=== PATIENT | male | born 1935 | race African-American/Black ===

== ENCOUNTER 2016-11-05 13:02 | Inpatient (IN) | payer OTHER, MEDICARE ==
[~2016-11-05] VITALS: Ht 170.2 cm; Wt 89.9 kg
[~2016-11-05 13:02] MED LIST: ASPI325T PO; CARV25TA PO; FURO1TAB93 PO; GABA100C4 PO; LEVA500T33 PO; LISI-363 PO; LOVA40TA PO; NEXI40CA PO; NORC7.5T PO; SPIR25TA PO
[2016-11-05 13:05] VITALS: BP 140/75; PULSE 64; RESP 22; TEMP 98.2; O2SAT 98
--- NOTE | 2016-11-05 14:50 | RADRPT ---
EXAM DATE/TIME: 11/05/2016 14:47 [facility] COMPARISON: No previous studies available for comparison. INDICATIONS : Short of breath. MEDICAL HISTORY : Cardiovascular disease. SURGICAL HISTORY : Pacemaker. ENCOUNTER: Subsequent ACUITY: 1 week PAIN SCORE: 0/10 LOCATION: Bilateral chest FINDINGS: PA and lateral views of the chest demonstrate the lungs to be symmetrically, but over aerated with so me linear atelectatic changes just above the left hemidiaphragm in the region of the lingula. Lungs a re otherwise clear with no acute infiltrate. The cardiomediastinal contours are unremarkable. Left subclavian bipolar pacer/defibrillator. Osseous structures are intact. CONCLUSION: 1. Hyperinflation with minimal linear atelectasis or scarring in the left lingula. Otherwise, no acut e infiltrate. 2. Left subclavian bipolar pacer/defibrillator. Mynor Roldan MD on November 05, 2016 at 14:47 Board Certified Radiologist. This report was verified electronically.
[2016-11-05] MEDS ORDERED: MILRINONE INJ 20 MG in SODIUM CHLORIDE 0.9% INJ 80 ML IV SCH (15:00)
[2016-11-05] MEDS ORDERED: POTASSIUM PHOSPHATE MONOBASIC 500 MG TAB PO/TUBE PRN (15:00)
[2016-11-05] MEDS ORDERED: MAGNESIUM OXIDE 400 MG TAB PO PRN (15:00)
[2016-11-05] MEDS ORDERED: MAGNESIUM SULFATE INJ 4 GM in SODIUM CHLORIDE 0.9% INJ 92 ML IV PRN (15:00)
[2016-11-05] MEDS ORDERED: POTASSIUM CHLOR 20 MEQ PREMIX 100 ML IV PRN ×2 (15:00)
[2016-11-05] MEDS ORDERED: POTASSIUM PHOSPHATE INJ 30 MMOL in SODIUM CHLOR 0.9% 250 ML INJ 250 ML IV PRN (15:00)
[2016-11-05] MEDS ORDERED: POTASSIUM PHOSPHATE MONOBASIC 500 MG TAB PO PRN (15:00)
[2016-11-05] MEDS ORDERED: MAGNESIUM SULFATE INJ 2 GM in SODIUM CHLORIDE 0.9% INJ 96 ML IV PRN (15:00)
[2016-11-05] MEDS ORDERED: POTASSIUM CHLOR 40 MEQ PREMIX 100 ML IV PRN ×2 (15:00)
[2016-11-05] MEDS ORDERED: SODIUM PHOSPHATE INJ 30 MMOL in SODIUM CHLOR 0.9% 250 ML INJ 240 ML IV PRN (15:00)
[2016-11-05] MEDS ORDERED: DEXTROSE 50% IN WATER 50 ML VIAL(D50) IV PUSH PRN (15:00)
--- NOTE | 2016-11-05 15:04 | HHI.HP ---
[facility] Service Critical Care Medicine Primary Care Physician Non-Staff Admission Diagnosis Diagnosis: Chief Complaint: shortness of breath Travel History International Travel<30 Days: No Contact w/Intl Traveler <30 Da: No Traveled to Known Affected Are: No History of Present Illness This is a 81yM well-known to Dr. Shane who has a history of severe LV systolic dysfunction who continues to have difficulty in both the inpatient and outpatient morales with congestive heart failure with multiple recurrent hospital admissions for CHF exacerbation. He presents again today with severe and worsening shortness of breath despite aggressive outpatient diuresis. He can only walk about 10 feet without getting winded, sleeps upright at night. has difficulty with any level of activity at all. denies chest pain, fever, chills, cough, hemoptysis. Patient denies any other pertinent ROS other than those listed in the HPI. Review of Systems Cardiovascular: DENIES: Chest pain Past Family Social History Allergies: Coded Allergies: Penicillin (Verified Allergy, Severe, 11/05/16) Past Medical History Congestive heart failure, EF 20% Cardiomegaly Hyperlipidemia Hypertension Mitral regurgitation Tricuspid Regurgitation Past Surgical History BiV ICD placement 2014 Angioplasty Fem-pop bypass Reported Medications carvedilol gabapentin lisinopril lasix lovastatin Active Ordered Medications See MAR Family History reviewed and found to be noncontributory to his acute illness Social History drinks ~1 beer/day smokes 1ppd. Physical Exam Vital Signs Vital Signs Date Time Temp Pulse Resp B/P Pulse Ox O2 Delivery O2 Flow Rate FiO2 11/05/16 13:05 98.2 64 22 140/75 98 Physical Exam GENERAL: Obese elderly male, lying in bed, tachypneic in mild to moderate distress HEENT: Normocephalic. Atraumatic. Pupils equal, round, reactive, conjugate. Mucous membranes are moist NECK: Trachea is midline. + JVD. CHEST: Tachypneic, clear to auscultation CARDIOVASCULAR: Normal Rate regular rhythm. ABDOMEN: Soft, nontender, nondistended. No guarding. MUSCULOSKELETAL: Pulses 2+. 2+ peripheral edema NEUROLOGICAL: RASS 0. GCS 15. No gross focal deficits. Laboratory Laboratory results are pending. Imaging Chest x-ray without acute disease. Assessment and Plan Assessment and Plan Assessment: 81yM with acute on chronic systolic heart failure exacerbation which has failed both outpatient and multiple recent inpatient hospitalizations for optimization. He is critically ill at this time with worsening CHF despite aggressive care and likely in early cardiogenic shock requiring inotropic therapy to maintain adequate cardiac output. I agree with proceeding with inotropic therapy. We will also pursue Right Heart Catheterization to evaluate his filling pressures and optimize cardiac output. He also has not had a recent echo in the last 6-12 months, so we will repeat his echo to look at his EF. Plan: Left ventricular systolic heart failure exacerbation- severe, failing outpatient and inpatient therapy Acute intravascular volume overload -- admit to CVICU -- 1L fluid restriction -- repeat 2d echo -- bnp, cbc, cmp, lactate -- RHC -- consult Dr. Shane for ongoing cardiac comanagement -- inotropic therapy with milrinone, start at 0.5 mcg/kg/min -- strict i/o's -- aggressive forced diuresis -- daily weights This patient remains critically ill with one or more organ systems which are or may become a threat to life. I have spent in excess of 33 minutes discontinuously in the care and management of this patient. This time is exclusive of procedures, and includes, but is not limited to, evaluation of the patient, review of the medical record, discussions with family, consultants, nursing staff, or respiratory therapy, and documentation in the medical record. Discussed Condition With Yoni Padilla MD Nov 05, 2016 15:04
[2016-11-05] MEDS ORDERED: VITA100018 PO (15:23)
[2016-11-05] MEDS ORDERED: FURO40TA PO (15:23)
[2016-11-05] MEDS ORDERED: SACU1TAB PO (15:23)
[2016-11-05] MEDS ORDERED: SPIR25TA PO (15:23)
[2016-11-05] MEDS ORDERED: NEXI20CA PO (15:23)
[2016-11-05] MEDS ORDERED: GABA600T PO (15:23)
[2016-11-05] MEDS ORDERED: CARV25TA PO (15:23)
[2016-11-05] MEDS ORDERED: CLOP75TA PO (15:23)
[2016-11-05] MEDS ORDERED: LOVA40TA PO (15:23)
--- NOTE | 2016-11-05 15:25 | PD ---
HPI Chief Complaint: Respiratory Symptoms Time Seen by Provider: 14:54 Travel History International Travel<30 days: No Contact w/Intl Traveler<30days: No Traveled to known affect area: No History of Present Illness HPI 81yo M with PMH of CHF presents to the ED with c/o worsening shortness of breath. Pt last saw Dr. Shane last Friday and was told that he needed to come in for his CHF. Pt has been feeling more sob than normal, feeling sob even just walking a few steps. Denies any fever, chest pain, n/v, abdominal pain, focal weakness or numbness. States his right leg has been swollen for years since his leg surgery. PFSH Past Medical History Hx Anticoagulant Therapy: Yes Cancer: No Cardiovascular Problems: Yes Chest Pain: No Diabetes: No Gastrointestinal Disorders: No Glaucoma: No Hepatitis: No Hiatal Hernia: No Hypertension: Yes Respiratory: No Integumentary: No Thyroid Disease: No Past Surgical History Cardiac Surgery: Yes (pacer) Other Surgery: Yes (hernia repair) Social History Alcohol Use: Yes (beer/weekly) Tobacco Use: No Substance Use: No Allergies-Medications (Allergen,Severity, Reaction): Coded Allergies: Penicillin (Verified Allergy, Severe, 11/05/16) Reported Meds & Prescriptions Reported Meds & Active Scripts Active Reported Clopidogrel (Clopidogrel Bisulfate) 75 Mg Tab 75 Mg PO DAILY Furosemide 40 Mg Tab 40 Mg PO DAILY Carvedilol 25 Mg Tab 25 Mg PO BID Gabapentin 600 Mg Tab 600 Mg PO TID Spironolactone 25 Mg Tab 12.5 Mg PO BID Vitamin D3 (Cholecalciferol) 1,000 Unit Tab 1,000 Units PO DAILY Nexium (Esomeprazole DR) 20 Mg Capdr 20 Mg PO DAILY Lovastatin 40 Mg Tab 40 Mg PO DAILY Entresto (Sacubitril-Valsartan) 24-26 Mg Tab 1 Tab PO DAILY Review of Systems Except as stated in HPI: all other systems reviewed are Neg Physical Exam Narrative GENERAL: 81yo in mild distress. SKIN: Focused skin assessment warm/dry. HEAD: Atraumatic. Normocephalic. EYES: Pupils equal and round. No scleral icterus. No injection or drainage. ENT: No nasal bleeding or discharge. Mucous membranes pink and moist. NECK: Trachea midline. No JVD. CARDIOVASCULAR: Regular rate and rhythm. No murmur appreciated. RESPIRATORY: No accessory muscle use. Decreased bibasilar breath sounds. GASTROINTESTINAL: Abdomen soft, non-tender, nondistended. Hepatic and splenic margins not palpable. MUSCULOSKELETAL: No obvious deformities. No clubbing. No cyanosis. +Bilateral lower extremity edema. NEUROLOGICAL: Awake and alert. No obvious cranial nerve deficits. Motor grossly within normal limits. Normal speech. PSYCHIATRIC: Appropriate mood and affect; insight and judgment normal. Data Data Last Documented VS Vital Signs Date Time Temp Pulse Resp B/P Pulse Ox O2 Delivery O2 Flow Rate FiO2 11/05/16 13:05 98.2 64 22 140/75 98 Orders Chest, Pa & Lat (11/05/16 ) Cbc No Diff, Includes Plts (11/06/16 05:00) Cbc No Diff, Includes Plts (11/07/16 05:00) Cbc No Diff, Includes Plts (11/08/16 05:00) Cbc No Diff, Includes Plts (11/09/16 05:00) Cbc No Diff, Includes Plts (11/10/16 05:00) Cbc No Diff, Includes Plts (11/11/16 05:00) Cbc No Diff, Includes Plts (11/12/16 05:00) Basic Metabolic Panel (Bmp) (11/06/16 05:00) Basic Metabolic Panel (Bmp) (11/07/16 05:00) Basic Metabolic Panel (Bmp) (11/08/16 05:00) Basic Metabolic Panel (Bmp) (11/09/16 05:00) Basic Metabolic Panel (Bmp) (11/10/16 05:00) Basic Metabolic Panel (Bmp) (11/11/16 05:00) Basic Metabolic Panel (Bmp) (11/12/16 05:00) Magnesium Oxide (Mag-Ox) (11/05/16 15:00) Magnesium Sulfate Inj (Magnesium Sulfate (11/05/16 15:00) Magnesium Sulfate Inj (Magnesium Sulfate (11/05/16 15:00) Potassium Chlor 20 Meq Premix (Kcl 20 Me (11/05/16 15:00) Potassium Chlor 20 Meq Premix (Kcl 20 Me (11/05/16 15:00) Potassium Chlor 40 Meq Premix (Kcl 40 Me (11/05/16 15:00) Potassium Chlor 40 Meq Premix (Kcl 40 Me (11/05/16 15:00) Potassium Phosphate (K-Phos) (11/05/16 15:00) Potassium Phosphate (K-Phos) (11/05/16 15:00) Potassium Phosphate Inj (Potassium Phosp (11/05/16 15:00) Sodium Phosphate Inj (Sodium Phosphate I (11/05/16 15:00) ^ Medication Admin Instruction (11/05/16 14:48) Notify Dr: Other (11/05/16 14:48) Inpatient Certification (11/05/16 14:48) Resp Ezpap/Pep Therapy (11/05/16 14:48) Resp Acapella/Pep/Chest Vibra (11/05/16 14:48) Resp Incentive Spirometry (11/05/16 14:48) Bedside Glucose CINDY.AC&HS&03 (11/05/16 14:48) Blood Glucose Goal (Criteria) (11/05/16 14:48) Hypoglycemia 51 - 69 Mg/Dl (11/05/16 14:48) Hypoglycemia 50 Mg/Dl Or < (11/05/16 14:48) Notify Dr: Other (11/05/16 14:48) Dextrose 50% In [place] (Vial) Inj (D50w (Vi (11/05/16 15:00) Insulin Human Reg Supp Scale (Novolin R (11/05/16 16:00) Complete Blood Count With Diff (11/05/16 14:48) Comprehensive Metabolic Panel (11/05/16 14:48) B-Type Natriuretic Peptide (11/05/16 14:48) Echo 2d Comp With Doppler (11/05/16 ) B-Type Natriuretic Peptide (11/06/16 06:00) B-Type Natriuretic Peptide (11/07/16 06:00) B-Type Natriuretic Peptide (11/08/16 06:00) Sodium Chloride 0.9... W/Milrinone Inj (11/05/16 15:00) Lactic Acid (11/05/16 14:54) Lactic Acid (11/06/16 06:00) Lactic Acid (11/07/16 06:00) Diet Heart Healthy (11/05/16 Dinner) MDM Medical Decision Making Medical Screen Exam Complete: Yes Emergency Medical Condition: Yes Interpretation(s) EKG: Paced rhythm at 68bpm. PVC. No ST elevation in concordance. Differential Diagnosis CHF exacerbation vs. Pneumonia vs. ACS Narrative Course 81yo M with CHF was sent here from seconds handler Dr. Mccullough for admission for his decompensated CHF. [employer] Operator Dr. Holloway is already aware of patient and will be admitting him to his service. CXR showed hyperinflation with minimal linear atelectasis or scarring in the left lingula. No acute infiltrate. Left subclavian bipolar pacer/defibrillator. Diagnosis Primary Impression: CHF exacerbation Qualified Code: I50.23 - Acute on chronic systolic congestive heart failure Admitting Information Admitting Physician Requests: Paula Guidry DO Nov 05, 2016 15:25
[2016-11-05 15:54] LABS: AUTOMATED NEUTROPHIL # 7.4 TH/MM3 (1.8-7.7); BASOPHIL # 0.1 TH/MM3 (0-0.2); BASOPHIL % 0.6 % (0.0-2.0); EOSINOPHIL # 0.4 TH/MM3 (0-0.4); EOSINOPHIL % 3.6 % (0.0-4.0); HEMATOCRIT 44.8 % (39.0-51.0); HEMO FLAGS DIFF FINAL; LYMPH % 20.6 % (9.0-44.0); LYMPHOCYTE # 2.2 TH/MM3 (1.0-4.8); MEAN CELL VOLUME 93.8 FL (80.0-100.0); MEAN CORPUSCULAR HEMOGLOBIN 31.6 PG (27.0-34.0); MEAN CORPUSCULAR HGB CONC 33.7 % (32.0-36.0); MONO % 6.7 % (0.0-8.0); NEUT % 68.5 % (16.0-70.0); PLATELET COUNT 254 TH/MM3 (150-450); RED BLOOD COUNT 4.77 MIL/MM3 (4.50-5.90); RED CELL DISTRIBUTION WIDTH 12.9 % (11.6-17.2); WHITE BLOOD COUNT 10.8 TH/MM3 (4.0-11.0)
[2016-11-05] MEDS ORDERED: INSULIN NovoLIN REGULAR SUPPLEMENTAL SCALE SQ SCH (16:00)
[2016-11-05 16:15] VITALS: BP 143/57; PULSE 86; RESP 18; TEMP 97.9; O2SAT 92
[2016-11-05 16:17] LABS: ALKALINE PHOSPHATASE 68 U/L (45-117); TOTAL BILIRUBIN ADULT 0.5 MG/DL (0.2-1.0)
[2016-11-05 16:32] LABS: ALT (GPT) 25 U/L (12-78); ANION GAP 7 MEQ/L (5-15); AST (GOT) 28 U/L (15-37); BICARBONATE 31.2 MEQ/L (21.0-32.0); BLOOD UREA NITROGEN 22 MG/DL (7-18); CHLORIDE 100 MEQ/L (98-107); GLOMERULAR FILTRATION RATE 55 ML/MIN (>89); SODIUM (NA) 138 MEQ/L (136-145)
[2016-11-05 16:33] LABS: POTASSIUM 5.2 MEQ/L (3.5-5.1)
--- NOTE | 2016-11-05 16:57 | EKG ---
Date Performed: 11/05/2016 Time Performed: 15:01:41 PTAGE: 81 years EKG: ELECTRONIC ATRIAL PACEMAKER ELECTRONIC VENTRICULAR PACEMAKER ABNORMAL RHYTHM ECG PREVIOUS TRACING : 11/11/2013 05.22 Compared to prior tracing no significant change DOCTOR: Edith Kuhn Interpretating Date/Time 11/05/2016 16:56:28
--- NOTE | 2016-11-05 18:18 | ECHRPT ---
Indication: CONCLUSIONS Mildly dilated left ventricle. Mild concentric left ventricular hypertrophy. The left ventricular systolic function is mildly reduced with an estimated ejection fraction in the range of 45- 50%. Mild thickening of the mitral valve leaflets. Moderate mitral annular calcification. Mild mitral valve regurgitation. Structurally normal tricuspid valve. There is trace tricuspid valve regurgitation. Normal estimated pulmonary pressures. BP: 140 / 75 HR: 64 Rhythm: MEASUREMENTS (Male / Female) Normal Values Technical Quality: 2D ECHO LV Diastolic Diameter PLAX 4.9 cm 4.2 - 5.9 / 3.9 - 5.3 cm LV Systolic Diameter PLAX 4.4 cm IVS Diastolic Thickness 0.8 cm 0.6 - 1.0 / 0.6 - 0.9 cm LVPW Diastolic Thickness 0.8 cm 0.6 - 1.0 / 0.6 - 0.9 cm LV Relative Wall Thickness 0.3 LVOT Diameter 2.2 cm Aortic Root Diameter 3.4 cm LA Systolic Diameter LX 4.1 cm 3.0 - 4.0 / 2.7 - 3.8 cm M-MODE AV Cusp Separation MM 1.8 cm DOPPLER AV Peak Velocity 102.3 cm/s AV Peak Gradient 4.2 mmHg AV Mean Gradient 2.0 mmHg AV Velocity Time Integral 21.8 cm LVOT Peak Velocity 57.1 cm/s LVOT Peak Gradient 1.3 mmHg LVOT Velocity Time Integral 11.7 cm LVOT Cardiac Index 1323.9 cm/minm AV Area Cont Eq vti 2.0 cm AV Area Cont Eq pk 2.1 cm Mitral E Point Velocity 55.8 cm/s Mitral A Point Velocity 83.4 cm/s Mitral E to A Ratio 0.7 LV E' Lateral Velocity 5.5 cm/s Mitral E to LV E' Lateral Ratio 10.2 LV E' Septal Velocity 5.3 cm/s Mitral E to LV E' Septal Ratio 10.6 TR Peak Velocity 191.0 cm/s TR Peak Gradient 14.6 mmHg PV Peak Velocity 60.2 cm/s PV Peak Gradient 1.4 mmHg FINDINGS LEFT VENTRICLE Mildly dilated left ventricle. Mild concentric left ventricular hypertrophy. The left ventricular systolic function is mildly reduced with an estimated ejection fraction in the range of 45- 50%. RIGHT VENTRICLE Normal right ventricular size and systolic function. LEFT ATRIUM The left atrial size is normal. RIGHT ATRIUM The right atrial size is normal. ATRIAL SEPTUM Normal atrial septal thickness without atrial level shunting by limited color doppler interrogation. AORTA The aortic root and proximal ascending aorta are normal in size on limited imaging. MITRAL VALVE Mild thickening of the mitral valve leaflets. Moderate mitral annular calcification. Mild mitral valve regurgitation. AORTIC VALVE Trileaflet aortic valve. No aortic valve stenosis or regurgitation. TRICUSPID VALVE Structurally normal tricuspid valve. There is trace tricuspid valve regurgitation. Normal estimated pulmonary pressures. PULMONARY VALVE The pulmonary valve is not well visualized. VESSELS The inferior vena cava is normal in size. PERICARDIUM No pericardial effusion. Orlando Flores MD, FACC (Electronically Signed) Final Date:05 November 2016 18:17
[2016-11-05 19:00] VITALS: PULSE 90
[2016-11-05] MEDS ORDERED: FUROSEMIDE 100 MG/10 ML VIAL IV PUSH ONE (19:00)
[2016-11-05] MEDS ORDERED: hydrALAZINE HCL 20 MG/ML VIAL IV PUSH PRN (19:00)
--- NOTE | 2016-11-05 19:07 | PD.PROCEDR ---
Procedure Note Procedure Central Line Procedure Note Right IJ 8.5 Japanese Cordis introducer sheath Diagnosis: CHF exacerbation Indications: CHF exacerbation not responsive to inpatient or outpatient diuretic therapy, need for right heart catheterization for thermodilution cardiac outputs and central pressure monitoring Consent: Written consent was obtained Anesthesia: 1 percent lidocaine locally Description of the Procedure: The patient was placed in the supine, mild- Trendelenburg position. The area was prepped and draped sterilely. A 19g needle was inserted under negative pressure aspiration and dark venous blood was obtained. A guidewire was inserted easily without resistance. A small incision was made using a #11 blade. Using a modified Seldinger technique, the dilator and 8.5 Japanese, 10 cm catheter were advanced over the guidewire without resistance. All ports were aspirated and flushed, and had brisk blood return. The line was secured at the skin using 2-0 silk interrupted sutures. A Biopatch and Transparent sterile dressing were applied. There were no immediate complications noted. There was minimal EBL. The patient tolerated the procedure well. Ultrasound Guidance: Ultrasound guidance was used to identify the right internal jugular vein. The vascular anatomy of the right anterior neck was normal. The vessel was cannulated under direct, real-time ultrasound visualization. After placement of the guidewire, confirmation of the guidewire in the lumen of the vessel was made using ultrasound visualization, before dilation of the tract. A Chest x-ray has been ordered. I personally performed the procedure. Yoni Gallegos MD Nov 05, 2016 19:07
--- NOTE | 2016-11-05 19:10 | PD.PROCEDR ---
Procedure Note Procedure Pulmonary Artery Catheter Procedure Note Right IJ 7 Micronesian PA catheter Diagnosis: CHF exacerbation with possible cardiogenic shock Indications: CHF exacerbation not responsive to diuretic therapy inpatient or outpatient, need for central pressure monitoring and accurate thermodilution cardiac output Consent: Written consent was obtained Anesthesia: 1% lidocaine locally Description of the Procedure: The patient was placed in the supine, mild-Reverse -Trendelenburg position. The area was prepped and draped sterilely. A 7 Fr pulmonary artery catheter was flushed, and all ports were checked, including PA , CVP, infusion port. The balloon was tested and inflated and deflated easily. Through an existing introducer sheath, the catheter was inserted to a depth of 20 cm and the balloon was inflated without resistance. The PA catheter was advanced under continuous waveform hemodynamic monitoring and appropriate RA, RV , PA, and PCWP waveforms were achieved. The balloon was deflated. The line was secured to the introducer sheath using a sterile cover. There were no immediate complications noted. There was minimal EBL. The patient tolerated the procedure well. PA catheter secured at: 56 cm. Hemodynamic Data: Art 172/74 (101) HR 66 RAP: 15 mmHg RV: 73/13 mmHg PAP: 45/28 (33) mmHg PCWP: 22 mmHg achieved at 58 cm SVR 1427 dyn*sec/cm^5 PVR 2.1 [place] Mixed Venous SvO2: 52 % Cardiac Output: 5.2 L/min Cardiac Index: 2.5 A Chest x-ray has been ordered. I personally performed the procedure. Yoni Gallegos MD Nov 05, 2016 19:09
[2016-11-05] MEDS ORDERED: PILL SPLITTER OTHER PRN (19:15)
[2016-11-05 19:17] VITALS: BP 157/99; PULSE 90; RESP 18; TEMP 97.8; O2SAT 95
--- NOTE | 2016-11-05 19:20 | RADRPT ---
EXAM DATE/TIME: 11/05/2016 18:59 [facility] COMPARISON: CHEST SINGLE AP, November 10, 2013, 9:41. INDICATIONS : Short of breath. MEDICAL HISTORY : Cardiovascular disease. SURGICAL HISTORY : Pacemaker. ENCOUNTER: Subsequent ACUITY: 2 days PAIN SCORE: 0/10 LOCATION: Bilateral chest FINDINGS: A single view of the chest demonstrates the lungs to be symmetrically aerated without evidence of mas s, infiltrate or effusion. Left sided defibrillator with intact leads. [place]-Lewis catheter from right jugular approach with tip in the right main pulmonary artery. The cardiomediastinal contours are unr emarkable. Osseous structures are intact. CONCLUSION: 1. [place]-Lewis catheter with tip in the right main pulmonary artery. 2. Lungs are clear. Travis Good MD on November 05, 2016 at 19:17 Board Certified Radiologist. This report was verified electronically.
[2016-11-05] MEDS ORDERED: ONDANSETRON HCL 4 MG/2 ML VIAL ONE (20:09)
[2016-11-05] MEDS: SPIRONOLACTONE 25 MG TAB PO SCH (20:10)
[2016-11-05] MEDS: CARVEDILOL 12.5 MG TAB PO SCH (20:10)
[2016-11-05 21:00] VITALS: BP 121/67; PULSE 91
[2016-11-05] MEDS: ONDANSETRON HCL 4 MG/2 ML VIAL IV PUSH PRN (21:42)
[2016-11-05] MEDS ORDERED: PANTOPRAZOLE SOD 20 MG DELAYED RELEASE TAB PO SCH (21:45)
--- NOTE | 2016-11-05 21:47 | MB ---
cc: CHETAN PADILLA DATE OF CONSULTATION 11/05/2016 CONSULTATIONS 11/05/[address] Yoni Gallegos REASON FOR CONSULTATION Evaluate for shortness of breath. HISTORY OF THE PRESENT ILLNESS Ms. Kate is a pleasant 81-year-old [facility] male with a history of congestive heart failure, left ventricular dysfunction. His ejection fraction was down around 15-20%. He has AICD placed. He has been having worsening of his shortness of breath for the last few months to the extent that walking inside the house makes him short of breath. He says that he does not even remember when was the last time he walked 1-2 bloacks. Actually his shortness of breath has been going on much longer than 2-3 months. He does not walk mainly because of his leg pain. The patient has been having recurrent CHF and he was brought to the hospital for evaluation and optimization of his medications. The patient was seen by Dr. Yoni Gallegos. He had a [place]-Lewis catheter placed which shows that his RV pressure is 73/17, wedge pressure 22. His cardiac index is 2.5. He had an echocardiogram today which shows that his EF has improved, now it is 45-50% and his pulmonary pressures are normal on echocardiogram. The patient does admit that he has a long history of smoking for 45 years or so and he does admit to some intermittent wheezing. He has never been diagnosed with COPD. He has no cough or sputum production, no fever or chills. No night sweats. PAST MEDICAL HISTORY Significant for: 1. History of congestive heart failure. 2. AICD placement. 3. Hyperlipidemia. 4. Hypertension. 5. Peripheral arterial disease. 6. Fem-pop bypass by Dr. Day. MEDICATIONS He is currently takin. Plavix 75 mg a day. 2. Neurontin 600 milligrams three times a day. 3. Pravachol 40 mg a day. 4. Entresto 24 - 26 mg one tablet daily. 5. Protonix 40 mg daily. 6. Lasix 40 mg daily. 7. Coreg 0.25 mg daily. 8. Spironolactone 12.5 mg twice a day. 9. Hydralazine 10 mg a day. 10. Potassium supplement. ALLERGIES HE IS ALLERGIC TO PENICILLIN. SOCIAL HISTORY He has history of smoking of about a pack or so for 45 years. Which he quit. He used to drink heavily, now he drinks beer occasionally. No drug use. 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 FAMILY HISTORY He is originally from [place]. He had a total of seven siblings, only one is left alive. He never , has no children. REVIEW OF SYSTEMS Normally he is up, around, active, walks only inside the house. Weight is stable. Does not know if he snores but does feel tired sometimes. No known deep venous thrombosis or pulmonary embolism. No seizure, stroke or epilepsy. PHYSICAL EXAMINATION GENERAL: Shows a well-developed, well-nourished male not in acute distress at rest. VITAL SIGNS: Blood pressure 143/57, heart rate 86, respiration 18, temperature 97.9. HEENT: Pupils are equal, round and reactive to light. He had bilateral cataract surgery done. Oral mucosa, nasal mucosa normal. NECK: Supple. JVP not raised. CHEST: Equal bilaterally. No rhonchi. CARDIOVASCULAR: S1-S2 normal. ABDOMEN: Benign. EXTREMITIES: No edema. IMPRESSION 1. Shortness of breath which is multifactorial. He has a long history of smoking, need to rule out possible underlying chronic obstructive pulmonary disease, also possibility of interstitial lung disease. 2. Congestive heart failure. 3. Mild pulmonary hypertension. 4. Need to rule out possible chronic thromboembolic disease. 5. Status post AICD placement. PLAN I discussed with the patient we will check his pulmonary function study and get his V/Q scan. If PFT shows of any obstructive disease, we will consider bronchodilator treatment. He will also need a CT scan of the chest to rule out any underlying restrictive lung disease. As an outpatient we will consider sleep study. He has been diuresed. Continue his Plavix and Entresto and Coreg and spironolactone 12.5 milligrams a day. Further treatment will depend on the course in the hospital. Thank you Dr. Yoni Gallegos for this consultation. MD ALLYN Moctezuma/EMILY /8:17 PM /9:27 PM
[2016-11-05] MEDS ORDERED: ACETAMINOPHEN 325 MG TAB PO ONE (22:30)
[2016-11-05 23:07] VITALS: BP 113/80; PULSE 87; RESP 16; TEMP 98; O2SAT 96
[2016-11-06] VITALS (7 sets, daily range): BP systolic 115–145; BP diastolic 55–81; PULSE 71–91; RESP 14–20; TEMP 96.6–98.2; O2SAT 93–96
[2016-11-06 04:45] LABS: BLOOD GAS BASE EXCESS 4.6 mmol/L (-2-2); BLOOD GAS CARBOXYHEMOGLOBIN 1.8 % (0-4); BLOOD GAS HCO3 29 mmol/L (22-26); BLOOD GAS METHEMOGLOBIN 1.1 % (0-2); BLOOD GAS O2 HGB SATURATION 90 % (90-100); BLOOD GAS OXYGEN CONTENT 17.6 Vol % (12.0-20.0); BLOOD GAS PCO2 50 mmHg (38-42); BLOOD GAS PO2 67 mmHg (61-120); BLOOD GAS TOTAL HGB 13.9 G/DL (12.0-16.0); CRITICAL VALUE NO; DRAW SITE RT RADIAL; FIO2 21 %; NUMBER OF ARTERIAL PUNCTURES 2; OXYGEN DEVICE ROOM AIR; STAT NO; TEMP CORR TO 98.6; ULNAR PULSE PRESENT
[2016-11-06 04:47] LABS: HEMATOCRIT 40.9 % (39.0-51.0); MEAN CELL VOLUME 94.6 FL (80.0-100.0); MEAN CORPUSCULAR HEMOGLOBIN 31.1 PG (27.0-34.0); MEAN CORPUSCULAR HGB CONC 32.9 % (32.0-36.0); PLATELET COUNT 225 TH/MM3 (150-450); RED BLOOD COUNT 4.32 MIL/MM3 (4.50-5.90); RED CELL DISTRIBUTION WIDTH 12.9 % (11.6-17.2); REVIEW FLAG FINAL; WHITE BLOOD COUNT 9.9 TH/MM3 (4.0-11.0)
[2016-11-06 05:02] LABS: BICARBONATE 31.4 MEQ/L (21.0-32.0); POTASSIUM 4.2 MEQ/L (3.5-5.1)
[2016-11-06] MEDS: ONDANSETRON HCL 4 MG/2 ML VIAL IV PUSH PRN ×2 (07:32→11:54)
[2016-11-06] MEDS ORDERED: PADIMATE (CHAPSTICK) 4.5 GM TUBE TOPICAL PRN (09:00)
[2016-11-06] MEDS: SPIRONOLACTONE 25 MG TAB PO SCH ×2 (09:28→21:06)
[2016-11-06] MEDS: CARVEDILOL 12.5 MG TAB PO SCH ×2 (09:28→21:06)
[2016-11-06] MEDS: PRAVASTATIN SOD 40 MG TAB PO SCH (09:28)
[2016-11-06] MEDS: GABAPENTIN 300 MG CAP PO SCH ×2 (09:28→13:25)
[2016-11-06] MEDS: PANTOPRAZOLE SOD 20 MG DELAYED RELEASE TAB PO SCH (09:29)
[2016-11-06] MEDS: CLOPIDOGREL 75 MG TAB PO SCH (09:29)
[2016-11-06] MEDS: FUROSEMIDE 40 MG TAB PO SCH ×2 (09:29→17:52)
[2016-11-06] MEDS: SACUBITRIL/VALSARTAN 24 MG-26 MG TAB PO SCH (09:29)
[2016-11-06] MEDS: CHOLECALCIFEROL (VIT D3) 1000 UNIT TAB PO SCH (09:29)
--- NOTE | 2016-11-06 14:31 | HHI.PR ---
Subjective Remarks Acute on chronic dyspnea/left severe systolic CHF 11/06/16-patient seen and examined, reports some improvement or shortness of breath. Complained of nausea Objective Vitals Vital Signs Date Time Temp Pulse Resp B/P Pulse Ox O2 Delivery O2 Flow Rate FiO2 11/06/16 12:00 97.5 71 18 115/65 94 11/06/16 09:45 97.8 73 16 137/60 93 11/06/16 08:00 76 11/06/16 08:00 76 11/06/16 08:00 93 Room Air 11/06/16 08:00 76 145/66 11/06/16 08:00 93 Room Air 11/06/16 08:00 97.8 74 14 144/66 93 11/06/16 08:00 97.5 77 14 145/66 93 11/06/16 03:35 79 11/06/16 03:35 98.2 79 15 134/81 93 11/06/16 03:33 93 Room Air 11/06/16 03:33 91 134/81 11/05/16 23:07 96 Room Air 11/05/16 23:07 98.0 87 16 113/80 96 11/05/16 23:07 87 11/05/16 21:00 91 121/67 11/05/16 19:17 97.8 90 18 157/99 95 11/05/16 19:17 95 Room Air 11/05/16 19:00 90 11/05/16 16:15 Room Air 11/05/16 16:15 97.9 86 18 143/57 92 I/O 11/05/16 11/05/16 11/05/16 11/06/16 11/06/16 11/06/16 06:59 14:59 22:59 06:59 14:59 22:59 Intake Total 480 ml Output Total 1700 ml Balance -1220 ml Intake Oral 480 ml Output Urine Total 1700 ml # Bowel Movements 0 Result Diagram: 11/06/16 0406 11/06/16 0406 Imaging Last Impressions Chest X-Ray 11/05/16 0000 Signed Impressions: Service Date/Time: Saturday, November 05, 2016 18:59 - CONCLUSION: 1. [place]-Lewis catheter with tip in the right main pulmonary artery. 2. Lungs are clear. Travis Good MD Objective Remarks GENERAL: NAD SKIN: Warm and dry. HEAD: Normocephalic. EYES: No scleral icterus. No injection or drainage. NECK: Supple, trachea midline. No JVD or lymphadenopathy. CARDIOVASCULAR: Regular rate and rhythm without murmurs, gallops, or rubs. RESPIRATORY: Breath sounds decrease bilaterally. No accessory muscle use. GASTROINTESTINAL: Abdomen soft, non-tender, nondistended. MUSCULOSKELETAL: No cyanosis, or edema. BACK: Nontender without obvious deformity. No CVA tenderness. A/P Problem List: (1) Acute on chronic systolic (congestive) heart failure ICD Code: I50.23 Status: Acute (2) Dyspnea ICD Code: R06.00 Status: Acute (3) CAD (coronary artery disease) ICD Code: I25.10 Status: Acute (4) Hyperlipidemia ICD Code: E78.5 Status: Acute (5) Hypertension ICD Code: I10 Status: Acute Assessment and Plan 81-year-old man with Left ventricular systolic heart failure exacerbation- severe Acute intravascular volume overload -- s/p milrinone --Continue current diuretics including Lasix and Aldactone, MAIN inhibitor, beta chaz -- V/Q scan to rule out PE Severe dyspnea Appreciate input from pulmonary medicine Continue with DuoNeb when necessary VQ scan to rule out PE Hyperlipidemia Continue statin Coronary artery disease On Plavix Hypertension Continue with Coreg 25 mg twice a day Acute renal failure Prerenal, monitor BUN and creatinine and avoid all nephrotoxic drugs DVT prophylaxis Travis Baer MD Nov 06, 2016 14:31
--- NOTE | 2016-11-06 17:00 | RADRPT ---
EXAM DATE/TIME: 11/06/2016 11:44 [facility] COMPARISON: CHEST SINGLE AP, November 05, 2016, 18:59. INDICATIONS : Short of breath for 2 days. DOSE: 8.8 mCi Tc99m MAA IV 1.3 mCi Tc99m DTPA aerosol MEDICAL HISTORY : Hypercholesterolemia. Hypertension. Smoking history. SURGICAL HISTORY : Pacemaker. ENCOUNTER: Initial ACUITY: 2 days PAIN SCALE: 2/10 LOCATION: Bilateral chest TECHNIQUE: Following five minutes of tidal breathing of DTPA aerosol, planar images of the lungs were performed in eight projections. The patient was then injected with MAA, and eight-view perfusion scan was perf ormed. FINDINGS: Is a heterogeneous perfusion and markedly heterogeneous ventilation involving both lungs with multipl e matched nonsegmental defects of varying sizes present throughout both lungs. There are no segmental or subsegmental mismatches to specifically suggest pulmonary embolism. CONCLUSION: Low probability scan for pulmonary embolism Jono Prado MD on November 06, 2016 at 16:56 Board Certified Radiologist. This report was verified electronically.
[2016-11-06] MEDS ORDERED: ACETAMINOPHEN 325 MG TAB PO PRN (18:00)
--- NOTE | 2016-11-06 18:40 | HHI.PR ---
Subjective Remarks 81 YO Pleasant jama male with CHF, PHTN,AICD has WILDE Occ wheezing VQ low prob for PE no Cough or sp no CP Objective Vital Signs Vital Signs Date Time Temp Pulse Resp B/P Pulse Ox O2 Delivery O2 Flow Rate FiO2 11/06/16 12:00 97.5 71 18 115/65 94 11/06/16 09:45 97.8 73 16 137/60 93 11/06/16 08:00 76 11/06/16 08:00 76 11/06/16 08:00 93 Room Air 11/06/16 08:00 76 145/66 11/06/16 08:00 93 Room Air 11/06/16 08:00 97.8 74 14 144/66 93 11/06/16 08:00 97.5 77 14 145/66 93 11/06/16 03:35 79 11/06/16 03:35 98.2 79 15 134/81 93 11/06/16 03:33 93 Room Air 11/06/16 03:33 91 134/81 11/05/16 23:07 96 Room Air 11/05/16 23:07 98.0 87 16 113/80 96 11/05/16 23:07 87 11/05/16 21:00 91 121/67 11/05/16 19:17 97.8 90 18 157/99 95 11/05/16 19:17 95 Room Air 11/05/16 19:00 90 I/O 11/05/16 11/05/16 11/05/16 11/06/16 11/06/16 11/06/16 07:00 15:00 23:00 07:00 15:00 23:00 Intake Total 480 ml Output Total 1700 ml Balance -1220 ml Intake Oral 480 ml Output Urine Total 1700 ml # Bowel Movements 0 Result Diagram: 11/06/16 0406 11/06/16 0406 Objective Remarks GENERAL: WBWN male, NAD SKIN: Warm and dry. HEAD: Normocephalic. EYES: No scleral icterus. No injection or drainage. NECK: Supple, trachea midline. No JVD or lymphadenopathy. CARDIOVASCULAR: Regular rate and rhythm without murmurs, gallops, or rubs. RESPIRATORY: Breath sounds equal bilaterally. No accessory muscle use. GASTROINTESTINAL: Abdomen soft, non-tender, nondistended. MUSCULOSKELETAL: No cyanosis, or edema. BACK: Nontender without obvious deformity. No CVA tenderness. A/P Assessment and Plan Dysnoea, etiology to be determined PHTN CHF S/P AICD PLAN: Check PFT If restrictive disease, will need HRCT chest Check BIRD,RA,ESR Will need Sleep study as out pt. Rakesh Cotter MD Nov 06, 2016 18:40
[2016-11-06] MEDS: diphenhydrAMINE HCL 25 MG CAP PO PRN (22:49)
[2016-11-07] VITALS (7 sets, daily range): BP systolic 92–134; BP diastolic 52–58; PULSE 71–82; RESP 16–20; TEMP 96.1–97.8; O2SAT 90–95
[2016-11-07] MEDS: GABAPENTIN 300 MG CAP PO SCH ×3 (01:50→23:19)
[2016-11-07 07:11] LABS: HEMATOCRIT 42.1 % (39.0-51.0); MEAN CELL VOLUME 93.6 FL (80.0-100.0); MEAN CORPUSCULAR HEMOGLOBIN 31.6 PG (27.0-34.0); MEAN CORPUSCULAR HGB CONC 33.8 % (32.0-36.0); PLATELET COUNT 215 TH/MM3 (150-450); RED CELL DISTRIBUTION WIDTH 12.9 % (11.6-17.2); REVIEW FLAG FINAL; WHITE BLOOD COUNT 10.1 TH/MM3 (4.0-11.0)
[2016-11-07 07:40] LABS: RHEUMATOID FACTOR TRIGGER LESS THAN 10.0 IU/ML (0.0-14.9)
[2016-11-07 08:21] LABS: BICARBONATE 30.6 MEQ/L (21.0-32.0); POTASSIUM 4.1 MEQ/L (3.5-5.1)
--- NOTE | 2016-11-07 08:33 | RSPPFT ---
DATE OF PROCEDURE: 11/05/16 COMMENTS: Spirometry shows FVC of 1.0 at 29% of predicted, FEV1 of 0.5 at 23%, FEV1/FVC ratio is decreased. Flow is decreased at FEF 25-75. Flow volume loop indicates an obstructive pattern. IMPRESSION: 1. Severe obstructive lung disease. 2. Underlying restrictive disease is not ruled from this study. Full pulmonary function study will be necessary for further delineation.
[2016-11-07] MEDS: PANTOPRAZOLE SOD 20 MG DELAYED RELEASE TAB PO SCH (10:07)
[2016-11-07] MEDS: PRAVASTATIN SOD 40 MG TAB PO SCH (10:07)
[2016-11-07] MEDS: SACUBITRIL/VALSARTAN 24 MG-26 MG TAB PO SCH (10:07)
[2016-11-07] MEDS: CARVEDILOL 12.5 MG TAB PO SCH ×2 (10:08→21:46)
[2016-11-07] MEDS: CHOLECALCIFEROL (VIT D3) 1000 UNIT TAB PO SCH (10:08)
[2016-11-07] MEDS: CLOPIDOGREL 75 MG TAB PO SCH (10:08)
[2016-11-07] MEDS: SPIRONOLACTONE 25 MG TAB PO SCH ×2 (10:08→21:46)
[2016-11-07] MEDS: FUROSEMIDE 40 MG TAB PO SCH ×2 (10:09→18:54)
--- NOTE | 2016-11-07 11:25 | HHI.PR ---
Subjective Remarks Acute on chronic dyspnea/left severe systolic CHF 11/06/16-patient seen and examined, reports some improvement or shortness of breath. Complained of nausea 11/07/16-patient seen and examined, reports some improvement of shortness of breath however now with some wheezing but denies any chest pain. Currently afebrile. Ambulate without any difficulty. State he has now increased appetite Objective Vitals Vital Signs Date Time Temp Pulse Resp B/P Pulse Ox O2 Delivery O2 Flow Rate FiO2 11/07/16 08:00 97.8 74 20 109/56 90 11/07/16 04:00 96.6 71 18 114/55 94 11/07/16 00:00 96.9 74 16 95/52 93 11/06/16 21:10 Room Air 11/06/16 20:00 96.6 79 16 140/60 93 11/06/16 18:00 97.5 79 20 120/55 96 11/06/16 12:00 97.5 71 18 115/65 94 I/O 11/06/16 11/06/16 11/06/16 11/07/16 11/07/16 11/07/16 06:59 14:59 22:59 06:59 14:59 22:59 Intake Total 480 ml 250 ml 250 ml Output Total 1700 ml Balance -1220 ml 250 ml 250 ml Intake Oral 480 ml 250 ml 250 ml Output Urine Total 1700 ml # Voids 1 2 # Bowel Movements 0 0 0 Result Diagram: 11/07/16 0630 11/07/16 0630 Imaging Last Impressions Lung Scan-VQ Nuclear Medicine 11/06/16 0600 Signed Impressions: Service Date/Time: Sunday, November 06, 2016 11:44 - CONCLUSION: Low probability scan for pulmonary embolism Jono Prado MD Chest X-Ray 11/05/16 0000 Signed Impressions: Service Date/Time: Saturday, November 05, 2016 18:59 - CONCLUSION: 1. [place]-Lewis catheter with tip in the right main pulmonary artery. 2. Lungs are clear. Travis Good MD Objective Remarks GENERAL: NAD SKIN: Warm and dry. HEAD: Normocephalic. EYES: No scleral icterus. No injection or drainage. NECK: Supple, trachea midline. No JVD or lymphadenopathy. CARDIOVASCULAR: Regular rate and rhythm without murmurs, gallops, or rubs. RESPIRATORY: Breath sounds decrease left lung. No accessory muscle use. Expiratory wheezes GASTROINTESTINAL: Abdomen soft, non-tender, nondistended. MUSCULOSKELETAL: No cyanosis, or edema. BACK: Nontender without obvious deformity. No CVA tenderness. A/P Problem List: (1) Acute on chronic systolic (congestive) heart failure ICD Code: I50.23 Status: Acute (2) Dyspnea ICD Code: R06.00 Status: Acute (3) CAD (coronary artery disease) ICD Code: I25.10 Status: Acute (4) Hyperlipidemia ICD Code: E78.5 Status: Acute (5) Hypertension ICD Code: I10 Status: Acute Assessment and Plan 81-year-old man with Left ventricular systolic heart failure exacerbation- severe Acute intravascular volume overload -- s/p milrinone --Continue current diuretics including Lasix and Aldactone, MAIN inhibitor, beta chaz -- V/Q scan with low probability for PE Severe dyspnea Appreciate input from pulmonary medicine Continue with DuoNeb when necessary VQ scan with low probability for wheezing COPD exacerbation Start scheduled DuoNeb, Spiriva,Symbicort, prednisone 10 mg twice a day Maintain oxygen saturation above 90% Hyperlipidemia Continue statin Coronary artery disease On Plavix Hypertension Continue with Coreg 25 mg twice a day Acute renal failure Prerenal, monitor BUN and creatinine and avoid all nephrotoxic drugs Worsening renal indices DVT prophylaxis: Bilateral SCDs Travis Baer MD Nov 07, 2016 11:25
[2016-11-07] MEDS ORDERED: RESP: ALBUTEROL 2.5 MG/IPRATROPIUM 0.5 MG NEB (PRN) NEB (11:30)
[2016-11-07] MEDS: TIOTROPIUM BROMIDE 18 MCG INH INH SCH (12:44)
[2016-11-07] MEDS: predniSONE 10 MG TAB PO SCH ×2 (12:44→21:46)
--- NOTE | 2016-11-07 19:10 | HHI.PR ---
Subjective Remarks 81 YO Pleasant jam[place] male with CHF, PHTN,AICD has WILDE Occ wheezing VQ low prob for PE no Cough or sp no CP PFT restrictive lung disease Objective Vital Signs Vital Signs Date Time Temp Pulse Resp B/P Pulse Ox O2 Delivery O2 Flow Rate FiO2 11/07/16 16:31 97.0 71 20 123/56 95 11/07/16 12:52 96.1 78 20 92/52 92 11/07/16 08:00 Room Air 11/07/16 08:00 97.8 74 20 109/56 90 11/07/16 04:00 96.6 71 18 114/55 94 11/07/16 00:00 96.9 74 16 95/52 93 11/06/16 21:10 Room Air 11/06/16 20:00 96.6 79 16 140/60 93 I/O 11/06/16 11/06/16 11/06/16 11/07/16 11/07/16 11/07/16 06:59 14:59 22:59 06:59 14:59 22:59 Intake Total 480 ml 250 ml 250 ml 360 ml Output Total 1700 ml Balance -1220 ml 250 ml 250 ml 360 ml Intake Oral 480 ml 250 ml 250 ml 360 ml Output Urine Total 1700 ml # Voids 1 2 2 # Bowel Movements 0 0 0 1 Result Diagram: 11/07/16 0630 11/07/16 0630 Objective Remarks GENERAL: WBWN male, NAD SKIN: Warm and dry. HEAD: Normocephalic. EYES: No scleral icterus. No injection or drainage. NECK: Supple, trachea midline. No JVD or lymphadenopathy. CARDIOVASCULAR: Regular rate and rhythm without murmurs, gallops, or rubs. RESPIRATORY: Breath sounds equal bilaterally. No accessory muscle use. GASTROINTESTINAL: Abdomen soft, non-tender, nondistended. MUSCULOSKELETAL: No cyanosis, or edema. BACK: Nontender without obvious deformity. No CVA tenderness. A/P Assessment and Plan Dysnoea, etiology to be determined PHTN CHF S/P AICD PLAN: Check PFT If restrictive disease, will need HRCT chest Check BIRD,RA,ESR Will need Sleep study as out pt. CT Chest WO contrast Rakesh Cotter MD Nov 07, 2016 19:10
[2016-11-07] MEDS: RESP: ALBUTEROL 2.5 MG/IPRATROPIUM 0.5 MG NEB (SCH) NEB (20:52)
--- NOTE | 2016-11-07 21:47 | RADRPT ---
EXAM DATE/TIME: 11/07/2016 21:17 [facility] COMPARISON: No previous studies available for comparison. INDICATIONS : Shortness of breath. RADIATION DOSE: 6.43 CTDIvol (mGy) MEDICAL HISTORY : Hypertension. Congestive heart failure. Cardiovascular disease SURGICAL HISTORY : Pacemaker. ENCOUNTER: Subsequent ACUITY: 1 week PAIN SCALE: 0/10 LOCATION: Bilateral chest TECHNIQUE: Volumetric scanning of the chest was performed. Using automated exposure control and adjustment of t he mA and/or kV according to patient size, radiation dose was kept as low as reasonably achievable to obtain optimal diagnostic quality images. DICOM format image data is available electronically for r eview and comparison. Follow-up recommendations for incidentally detected pulmonary nodules are based at a minimum on nodul e size and patient risk factors according to Fleischner Society Guidelines. FINDINGS: There is moderate centrilobular emphysema especially in the upper lobes. There is no significant fibr otic change in the lungs. Minimal basilar atelectasis. There is also some basilar lung scarring and m ild cylindrical bronchiectasis in the left lower lobe. No significant pleural or pericardial effusion. Pacer leads in right atrium and right ventricle. No a cute findings in the upper abdomen. Moderate coronary calcifications. CONCLUSION: 1. Moderate centrilobular emphysema and only the upper lobes. 2. Mild cylindrical bronchiectasis left lower lobe. 3. No significant fibrotic change. No effusion. Chele Capellan MD on November 07, 2016 at 21:39 Board Certified Radiologist. This report was verified electronically.
[2016-11-07] MEDS: BUDESONIDE-FORMOTEROL 160/4.5 MCG INHALER INH SCH (21:50)
[2016-11-07] MEDS: diphenhydrAMINE HCL 25 MG CAP PO PRN (23:18)
[2016-11-08] VITALS: BP 137/63; PULSE 86; RESP 16; TEMP 96.6; O2SAT 94
[2016-11-08 04:00] VITALS: BP 122/54; PULSE 80; RESP 16; TEMP 98.7; O2SAT 93
[2016-11-08 08:00] VITALS: BP 123/57; PULSE 82; RESP 18; TEMP 97.1; O2SAT 91
[2016-11-08] MEDS: RESP: ALBUTEROL 2.5 MG/IPRATROPIUM 0.5 MG NEB (SCH) NEB ×2 (08:00→11:36)
[2016-11-08 08:20] LABS: HEMATOCRIT 42.1 % (39.0-51.0); MEAN CELL VOLUME 94.4 FL (80.0-100.0); MEAN CORPUSCULAR HGB CONC 32.9 % (32.0-36.0); PLATELET COUNT 221 TH/MM3 (150-450); RED BLOOD COUNT 4.46 MIL/MM3 (4.50-5.90); RED CELL DISTRIBUTION WIDTH 12.9 % (11.6-17.2); REVIEW FLAG FINAL
[2016-11-08] MEDS: TIOTROPIUM BROMIDE 18 MCG INH INH SCH (08:28)
[2016-11-08] MEDS: FUROSEMIDE 40 MG TAB PO SCH (08:28)
[2016-11-08] MEDS: CHOLECALCIFEROL (VIT D3) 1000 UNIT TAB PO SCH (08:28)
[2016-11-08] MEDS: SACUBITRIL/VALSARTAN 24 MG-26 MG TAB PO SCH (08:28)
[2016-11-08] MEDS: SPIRONOLACTONE 25 MG TAB PO SCH (08:29)
[2016-11-08] MEDS: predniSONE 10 MG TAB PO SCH (08:29)
[2016-11-08] MEDS: PRAVASTATIN SOD 40 MG TAB PO SCH (08:29)
[2016-11-08] MEDS: PANTOPRAZOLE SOD 20 MG DELAYED RELEASE TAB PO SCH (08:29)
[2016-11-08] MEDS: CLOPIDOGREL 75 MG TAB PO SCH (08:29)
[2016-11-08] MEDS: CARVEDILOL 12.5 MG TAB PO SCH (08:29)
[2016-11-08] MEDS: BUDESONIDE-FORMOTEROL 160/4.5 MCG INHALER INH SCH (08:30)
[2016-11-08 08:35] LABS: BICARBONATE 27.2 MEQ/L (21.0-32.0); POTASSIUM 5.1 MEQ/L (3.5-5.1)
--- NOTE | 2016-11-08 10:09 | HHI.PR ---
Subjective Remarks Acute on chronic dyspnea/left severe systolic CHF 11/06/16-patient seen and examined, reports some improvement or shortness of breath. Complained of nausea 11/07/16-patient seen and examined, reports some improvement of shortness of breath however now with some wheezing but denies any chest pain. Currently afebrile. Ambulate without any difficulty. State he has now increased appetite 11/08/16-patient seen and examined, denies any wheezing and reports significant improvement or shortness of breath since admission. Patient is looking for discharge home. CT chest noted. Objective Vitals Vital Signs Date Time Temp Pulse Resp B/P Pulse Ox O2 Delivery O2 Flow Rate FiO2 11/08/16 08:00 97.1 82 18 123/57 91 11/08/16 04:00 98.7 80 16 122/54 93 11/08/16 00:00 96.6 86 16 137/63 94 11/07/16 21:00 94 Room Air 21 11/07/16 20:57 90 21 11/07/16 20:00 96.8 82 16 134/58 94 11/07/16 16:31 97.0 71 20 123/56 95 11/07/16 12:52 96.1 78 20 92/52 92 I/O 11/07/16 11/07/16 11/07/16 11/08/16 11/08/16 11/08/16 07:00 15:00 23:00 07:00 15:00 23:00 Intake Total 250 ml 360 ml 360 ml 250 ml Balance 250 ml 360 ml 360 ml 250 ml Intake Oral 250 ml 360 ml 360 ml 250 ml # Voids 2 2 2 1 # Bowel Movements 0 1 0 0 Result Diagram: 11/08/16 0556 11/08/16 0556 Imaging Last Impressions Chest CT 11/07/16 0000 Signed Impressions: Service Date/Time: October 21:17 - CONCLUSION: 1. Moderate centrilobular emphysema and only the upper lobes. 2. Mild cylindrical bronchiectasis left lower lobe. 3. No significant fibrotic change. No effusion. Chele Capellan MD Lung Scan- Nuclear Medicine 11/06/16 0600 Signed Impressions: Service Date/Time: Sunday, November 06, 2016 11:44 - CONCLUSION: Low probability scan for pulmonary embolism Jono Prado MD Chest X-Ray 11/05/16 0000 Signed Impressions: Service Date/Time: Saturday, November 05, 2016 18:59 - CONCLUSION: 1. [place]-Lewis catheter with tip in the right main pulmonary artery. 2. Lungs are clear. Travis Good MD Objective Remarks GENERAL: NAD SKIN: Warm and dry. HEAD: Normocephalic. EYES: No scleral icterus. No injection or drainage. NECK: Supple, trachea midline. No JVD or lymphadenopathy. CARDIOVASCULAR: Regular rate and rhythm without murmurs, gallops, or rubs. RESPIRATORY: Breath sounds decrease left lung. No accessory muscle use. Expiratory wheezes GASTROINTESTINAL: Abdomen soft, non-tender, nondistended. MUSCULOSKELETAL: No cyanosis, or edema. BACK: Nontender without obvious deformity. No CVA tenderness. Procedures None A/P Problem List: (1) Acute on chronic systolic (congestive) heart failure ICD Code: I50.23 Status: Acute (2) Dyspnea ICD Code: R06.00 Status: Acute (3) CAD (coronary artery disease) ICD Code: I25.10 Status: Acute (4) Hyperlipidemia ICD Code: E78.5 Status: Acute (5) Hypertension ICD Code: I10 Status: Acute Assessment and Plan 81-year-old man with Left ventricular systolic heart failure exacerbation- severe Acute intravascular volume overload --Improved -- s/p milrinone --Continue current diuretics including Lasix and Aldactone, MAIN inhibitor, beta chaz -- V/Q scan with low probability for PE Severe dyspnea-improved Appreciate input from pulmonary medicine Continue with DuoNeb when necessary VQ scan with low probability for PE CT chest noted Perform walk test prior to discharge today 11/08/16 COPD exacerbation-resolved Continue scheduled DuoNeb, Spiriva,Symbicort, prednisone 10 mg twice a day Maintain oxygen saturation above 90% Hyperlipidemia Continue statin Coronary artery disease On Plavix Hypertension Continue with Coreg 25 mg twice a day Acute renal failure Prerenal, monitor BUN and creatinine and avoid all nephrotoxic drugs Worsening renal indices DVT prophylaxis: Bilateral SCDs Travis Baer MD Nov 08, 2016 10:09
[2016-11-08] MEDS ORDERED: VENTAER INH (10:14)
[2016-11-08] MEDS ORDERED: IPRA17I INH (10:14)
[2016-11-08] MEDS ORDERED: PRED10 PO (10:14)
[2016-11-08] MEDS ORDERED: SYMB160A INH (10:14)
[2016-11-08] MEDS ORDERED: SPIRCAP INH (10:14)
[2016-11-08] MEDS ORDERED: FURO40TA PO (10:14)
[2016-11-08] MEDS ORDERED: POTA-163 PO (10:14)
--- NOTE | 2016-11-08 10:16 | HHI.DS ---
Discharge Summary Admission Date Nov 05, 2016 at 15:28 Discharge Date: Nov 08, 2016 Admitting Diagnosis (1) Acute on chronic systolic (congestive) heart failure ICD Code: I50.23 (2) Dyspnea ICD Code: R06.00 (3) CAD (coronary artery disease) ICD Code: I25.10 (4) Hyperlipidemia ICD Code: E78.5 (5) Hypertension ICD Code: I10 Procedures None Brief History - From Admission This is a 81yM well-known to Dr. Shane who has a history of severe LV systolic dysfunction who continues to have difficulty in both the inpatient and outpatient morales with congestive heart failure with multiple recurrent hospital admissions for CHF exacerbation. He presents again today with severe and worsening shortness of breath despite aggressive outpatient diuresis. He can only walk about 10 feet without getting winded, sleeps upright at night. has difficulty with any level of activity at all. denies chest pain, fever, chills, cough, hemoptysis. Patient denies any other pertinent ROS other than those listed in the HPI. CBC/BMP: 11/08/16 0556 11/08/16 0556 Significant Findings Laboratory Tests Test 11/05/16 11/06/16 11/06/16 11/07/16 15:34 04:06 04:28 06:30 Potassium Level 5.2 MEQ/L (3.5-5.1) Blood Urea Nitrogen 22 MG/DL (7-18) 24 MG/DL (7-18) 32 MG/DL (7-18) Creatinine 1.50 MG/DL 1.53 MG/DL 2.54 MG/DL (0.60-1.30) (0.60-1.30) (0.60-1.30) Estimat Glomerular Filtration 55 ML/MIN (>89) 53 ML/MIN (>89) 30 ML/MIN (>89) Rate B-Type Natriuretic Peptide 102 PG/ML (0-100) Total Protein 8.4 GM/DL (6.4-8.2) Red Blood Count 4.32 MIL/MM3 (4.50-5.90) Blood Gas HCO3 29 mmol/L (22-26) Blood Gas Base Excess 4.6 mmol/L (-2-2) Arterial Blood Partial 50 mmHg (38-42) Pressure CO2 Erythrocyte Sedimentation Rate 21 mm/hr (0-20) Sodium Level 134 MEQ/L (136-145) Chloride Level 96 MEQ/L (98-107) Test 11/08/16 05:56 White Blood Count 14.0 TH/MM3 (4.0-11.0) Red Blood Count 4.46 MIL/MM3 (4.50-5.90) Sodium Level 133 MEQ/L (136-145) Chloride Level 97 MEQ/L (98-107) Blood Urea Nitrogen 49 MG/DL (7-18) Creatinine 2.64 MG/DL (0.60-1.30) Estimat Glomerular Filtration 28 ML/MIN (>89) Rate Random Glucose 125 MG/DL (74-106) Imaging Last Impressions Chest CT 11/07/16 0000 Signed Impressions: Service Date/Time: October 21:17 - CONCLUSION: 1. Moderate centrilobular emphysema and only the upper lobes. 2. Mild cylindrical bronchiectasis left lower lobe. 3. No significant fibrotic change. No effusion. Chele Capellan MD Lung Scan- Nuclear Medicine 11/06/16 0600 Signed Impressions: Service Date/Time: Sunday, November 06, 2016 11:44 - CONCLUSION: Low probability scan for pulmonary embolism Jono Prado MD Chest X-Ray 11/05/16 0000 Signed Impressions: Service Date/Time: Saturday, November 05, 2016 18:59 - CONCLUSION: 1. [place]-Lewis catheter with tip in the right main pulmonary artery. 2. Lungs are clear. Travis Good MD PE at Discharge GENERAL: NAD SKIN: Warm and dry. HEAD: Normocephalic. EYES: No scleral icterus. No injection or drainage. NECK: Supple, trachea midline. No JVD or lymphadenopathy. CARDIOVASCULAR: Regular rate and rhythm without murmurs, gallops, or rubs. RESPIRATORY: Breath sounds decrease left lung. No accessory muscle use. Expiratory wheezes GASTROINTESTINAL: Abdomen soft, non-tender, nondistended. MUSCULOSKELETAL: No cyanosis, or edema. BACK: Nontender without obvious deformity. No CVA tenderness. Hospital Course He was admitted secondary to severe left ventricular systolic heart failure exacerbations and acute intravascular volume overload for which he was initially started on milrinone and continued on his diuretics. VQ scan was order and ruled out PE. Second to severe dyspnea, pulmonary medicine was consulted. Patient had COPD exacerbation for which he was started on by mouth steroids and continued on long-acting beta agonist with significant improvement of symptoms. Walk test was performed prior to discharge and patient did not show any evidence of hypoxia. DVT and GI prophylaxis were provided. Her to discharge, patient's condition improved and vitals remained stable. Pt Condition on Discharge: Stable Discharge Disposition: Discharge Home Discharge Time: > 30 minutes Discharge Instructions DIET: Follow Instructions for: Heart Healthy Diet Activities you can perform: Regular-No Restrictions Follow up Referrals: PCP Follow-up - 1 Week Pulmonology New Medications: Albuterol 18 GM Inh (Ventolin Hfa 18 GM Inh) 90 Mcg/Act Aer 2 PUFF INH Q4-6H PRN SHORTNESS OF BREATH #1 Ref 3 INHALER Ipratropium HFA 12.9 GM Inh (Atrovent HFA 12.9 GM Inh) 17 Mcg/Act Aer 2 PUFF INH Q6HR PRN SHORTNESS OF BREATH #1 Ref 3 INHALER Potassium Chloride ER (Potassium Chloride ER) 20 Meq Tab 20 MEQ PO DAILY Electrolyte Replacement #30 Ref 3 TAB Budesonide-Formoterol Inh (Symbicort Inh) 160-4.5 Mcg/Act Aero 2 PUFF INH Q12HR Asthma Management #1 Ref 3 INHALER Furosemide (Furosemide) 40 Mg Tab 40 MG PO BID@09,18 Prevent Heart Failure #60 TAB Prednisone (Prednisone) 10 Mg Tab 10 MG PO DAILY Asthma Management #7 TAB Tiotropium Inh (Spiriva Handihaler) 18 Mcg Cap 18 MCG INH DAILY Asthma Management #1 Ref 3 CAP Continued Medications: Carvedilol (Carvedilol) 25 Mg Tab 25 MG PO BID #60 Ref 0 TAB Cholecalciferol (Vitamin D3) 1,000 Unit Tab 1000 UNITS PO DAILY Nutritional Supplement #1 Ref 0 BOTTLE Clopidogrel (Clopidogrel) 75 Mg Tab 75 MG PO DAILY Blood Clot Prevention #30 Ref [address] (Nexium) 20 Mg Capdr 20 MG PO DAILY Ref 0 CAP Gabapentin (Gabapentin) 600 Mg Tab 600 MG PO TID #90 Ref 0 TAB Lovastatin (Lovastatin) 40 Mg Tab 40 MG PO DAILY Cholesterol Management #30 Ref 0 TAB Sacubitril-Valsartan (Entresto) 24-26 Mg Tab 1 TAB PO DAILY Heart Failure #30 Ref 0 TAB Spironolactone (Spironolactone) 25 Mg Tab 12.5 MG PO BID #15 Ref 0 TAB Discontinued Medications: Furosemide (Furosemide) 40 Mg Tab 40 MG PO DAILY #30 Ref 0 TAB Travis Baer MD Nov 08, 2016 10:16 Cholecalciferol (Vitamin D3) 1,000 Unit Tab 1000 UNITS PO DAILY Nutritional Supplement #1 Ref 0 BOTTLE Clopidogrel (Clopidogrel) 75 Mg Tab 75 MG PO DAILY Blood Clot Prevention #30 Ref [address] (Nexium) 20 Mg Capdr 20 MG PO DAILY Ref 0 CAP Gabapentin (Gabapentin) 600 Mg Tab 600 MG PO TID #90 Ref 0 TAB Lovastatin (Lovastatin) 40 Mg Tab 40 MG PO DAILY Cholesterol Management #30 Ref 0 TAB Sacubitril-Valsartan (Entresto) 24-26 Mg Tab 1 TAB PO DAILY Heart Failure #30 Ref 0 TAB Spironolactone (Spironolactone) 25 Mg Tab 12.5 MG PO BID #15 Ref 0 TAB Discontinued Medications: Furosemide (Furosemide) 40 Mg Tab 40 MG PO DAILY #30 Ref 0 TAB Travis Baer MD Nov 08, 2016 10:16
--- NOTE | 2016-11-08 11:35 | HHI.PR ---
Subjective Remarks 81 YO Pleasant jamacn male with CHF, PHTN,AICD has WILDE Occ wheezing VQ low prob for PE no Cough or sp no CP PFT restrictive lung disease CT chest Emphysema Objective Vital Signs Vital Signs Date Time Temp Pulse Resp B/P Pulse Ox O2 Delivery O2 Flow Rate FiO2 11/08/16 08:00 97.1 82 18 123/57 91 11/08/16 04:00 98.7 80 16 122/54 93 11/08/16 00:00 96.6 86 16 137/63 94 11/07/16 21:00 94 Room Air 21 11/07/16 20:57 90 21 11/07/16 20:00 96.8 82 16 134/58 94 11/07/16 16:31 97.0 71 20 123/56 95 11/07/16 12:52 96.1 78 20 92/52 92 I/O 11/07/16 11/07/16 11/07/16 11/08/16 11/08/16 11/08/16 07:00 15:00 23:00 07:00 15:00 23:00 Intake Total 250 ml 360 ml 360 ml 250 ml Balance 250 ml 360 ml 360 ml 250 ml Intake Oral 250 ml 360 ml 360 ml 250 ml # Voids 2 2 2 1 # Bowel Movements 0 1 0 0 Result Diagram: 11/08/16 0556 11/08/16 0556 Objective Remarks GENERAL: WBWN male, NAD SKIN: Warm and dry. HEAD: Normocephalic. EYES: No scleral icterus. No injection or drainage. NECK: Supple, trachea midline. No JVD or lymphadenopathy. CARDIOVASCULAR: Regular rate and rhythm without murmurs, gallops, or rubs. RESPIRATORY: Breath sounds equal bilaterally. No accessory muscle use. GASTROINTESTINAL: Abdomen soft, non-tender, nondistended. MUSCULOSKELETAL: No cyanosis, or edema. BACK: Nontender without obvious deformity. No CVA tenderness. A/P Assessment and Plan Dysnoea, etiology to be determined PHTN CHF S/P AICD PLAN: Check PFT If restrictive disease, will need HRCT chest Check BIRD,RA,ESR Will need Sleep study as out pt. Stable to dc home Symbicort 2 puffs bid Will FU in office 11/18/16 Rakesh Cotter MD Nov 08, 2016 11:35
[2016-11-08 12:00] VITALS: BP 122/60; PULSE 81; RESP 16; TEMP 97.3; O2SAT 93
== END 2016-11-08 18:23 | disposition home or self-care (01) | DRG 292 ==
LOC: NEPD 13:02 → NEDA 15:28 → HCVR 15:50 → HCIS 11-06 09:43 → HOCB 11-06 17:59
PROVIDERS: ADMIT Hospitalist; ATTEND Hospitalist
PROC: 05HM33Z Insertion of Infusion Device into Right Internal Jugular Vein, Percutaneous Approach (ICD-10-PCS; principal; 2016-11-05)
PROC: B543ZZA Ultrasonography of Right Jugular Veins, Guidance (ICD-10-PCS; 2016-11-05)
PROC: 4A133B3 Monitoring of Arterial Pressure, Pulmonary, Percutaneous Approach (ICD-10-PCS; 2016-11-05)
DX: I50.23 Acute on chronic systolic (congestive) heart failure (principal); J44.1 Chronic obstructive pulmonary disease with (acute) exacerbation; N17.9 Acute kidney failure, unspecified; I27.2 Other secondary pulmonary hypertension; I73.9 Peripheral vascular disease, unspecified; I08.1 Rheumatic disorders of both mitral and tricuspid valves; E78.5 Hyperlipidemia, unspecified; I11.0 Hypertensive heart disease with heart failure; I25.10 Atherosclerotic heart disease of native coronary artery without angina pectoris; J98.9 Respiratory disorder, unspecified; F17.210 Nicotine dependence, cigarettes, uncomplicated; Z79.51 Long term (current) use of inhaled steroids; Z95.810 Presence of automatic (implantable) cardiac defibrillator
CPT/HCPCS: 36600; 71010; 71020; 71250; 78582; 80048; 80053; 82805; 82948; 83605; 83880; 85025; 85027; 85652; 86038; 86430; 93005; 93306; 94010; 94150; 94620; 94640; 94664; 94667; 94668; A9540; A9567; J1940; J2405; J7512